=== PATIENT | female | born 1940 | race Caucasian/White ===

== ENCOUNTER 2022-10-23 20:17 | Emergency (ER) | payer OTHER ==
[~2022-10-23] VITALS: Ht 165.1 cm; Wt 61.2 kg
--- NOTE | 2022-10-23 20:30 | NUR ---
LEFT CHIN LACERATION NOTED AFTER FALL, ABRASION NOTED TO LEFT FOREHEAD, 5/10 PAIN, PATIENT DENIES LOSING CONSCIOUSNESS, "FEELS LIKE HER BITE IS UNEVEN", NO BLOOD THINNERS
[2022-10-23 20:32] VITALS: BP_SYST 186; PULSE 80; RESP 17; TEMP 97.9; O2SAT 99
--- NOTE | 2022-10-23 20:32 | NUR ---
PATIENT PLACED IN ED BED 8
--- NOTE | 2022-10-23 20:32 | NUR ---
REPORT GIVEN TO MORELIA GARCIA
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
--- NOTE | 2022-10-23 20:43 | NUR ---
ER at bedside examining patient.
--- NOTE | 2022-10-23 21:13 | NUR ---
PT COMPLAINING OF RIGHT HAND PAIN [address] SHIN MADE AWARE NEW ORDERS FOR RIGHT HAND X-RAY ORDERED.
--- NOTE | 2022-10-23 21:35 | NUR ---
DR. SHIN AT BEDSIDE REPAIRING LACERATION
[2022-10-23] MEDS ORDERED: BACITRACIN 1 GM OINT TP ONE (22:00)
[2022-10-24] MEDS ORDERED: PENI500T PO (01:49)
[2022-10-24] MEDS ORDERED: BACI15OI13 TP (01:49)
[2022-10-24 02:28] VITALS: BP_SYST 184; PULSE 84; RESP 20; TEMP 97.7; O2SAT 96
--- NOTE | 2022-10-24 02:30 | NUR ---
Patient given written and verbal discharge instructions and verbalizes understanding. ER MD discussed with patient the results and treatment provided. Patient in stable condition. ID arm band removed. IV catheter removed intact and dressing applied, no active bleeding. Rx of BACITRACIN ZINC AND PENICILLIN V POTASSIUM given. Patient educated on pain management and to follow up with PMD. Pain Scale . Opportunity for questions provided and answered. Medication side effect fact sheet provided.
== END 2022-10-24 02:28 | disposition home or self-care (01) ==
LOC: SED 20:17
DX: S02.69XA Fracture of mandible of other specified site, initial encounter for closed fracture (principal); S01.81XA Laceration without foreign body of other part of head, initial encounter; I10 Essential (primary) hypertension; Z79.899 Other long term (current) drug therapy; W18.40XA Slipping, tripping and stumbling without falling, unspecified, initial encounter; Y93.89 Activity, other specified; Y92.89 Other specified places as the place of occurrence of the external cause; Y99.8 Other external cause status
CPT/HCPCS: 70450-TC; 70486-TC; 72125-TC; 76376; 99284